=== PATIENT | female | born 2000 | race Caucasian/White ===

== ENCOUNTER 2019-10-03 17:10 | Inpatient (IN) ==
[2019-10-03] MEDS ORDERED: ACETAMINOPHEN 325 MG TAB PO STA (19:03)
[2019-10-03] MEDS ORDERED: SODIUM CHLORIDE 0.9% 1000ML 2,000 ML IV ONE (19:03)
[2019-10-03 19:45] LABS: Hematocrit (blood only) 36.3 % (37-47); Hemoglobin 12.5 g/dL (12.0-16.0); Mean Corpuscular Hemoglobin 29.8 pg (25-34); Mean Corpuscular Hgb Conc 34.4 g/dL (32-36); Mean Corpuscular Volume 86.4 fL (80-100); Mean Platelet Volume 10.1 fL (7.4-10.4); Platelet Count 141 K/uL (130-400); RDW Coefficient of Variation 13.5 % (11.5-14.5); RDW Standard Deviation 42.5 fL (36.4-46.3); White Blood Count 8.79 K/uL (4.8-10.8)
[2019-10-03 19:52] LABS: Appearance Urine Cloudy (Clear); Blood Urine Trace (Negative); Color Urine Dark Yellow; Epithelial Cell Urine Auto >30 /lpf (0-5); Glucose Urine UA Negative (Negative); Ketones Urine Negative (Negative); Leukocyte Esterase Urine 1+ (Negative); Nitrite Urine Positive (Negative); Protein Urine Trace (Negative); Specific Gravity Urine 1.017 (1.000-1.030); Urobilinogen Urine Negative (Negative)
[2019-10-03 19:57] LABS: Bilirubin Urine 3+ (Negative); Ictotest Urine Positive (Negative)
[2019-10-03 20:04] LABS: Albumin Globulin Ratio 0.6 (0.9-2); BUN Creatinine Ratio 8.5 (10-20); Bilirubin,Total 3.9 mg/dl (0.2-1); Calcium 8.4 mg/dl (8.5-10.1); Creatinine Clr Calc Pharmacy 93.4 ml/min; Est GFR (African American) 130.9; Est GFR (Non-African American) 112.9; Globulin 4.7 gm/dl (2.5-4.0); Potassium 3.6 mmol/L (3.5-5.1); Total Protein 7.7 gm/dl (6.4-8.2)
[2019-10-03 20:11] LABS: Calcium Oxalate Crystals Urine Present (None Prsent); Cast Urine Automated 0 /lpf (0-5); Mucus Urine Present (None Prsent); RBC Urine Automated 0-4 /hpf (0-4)
[2019-10-03 20:12] LABS: Bacteria Urine Automated 2+ (Negative)
[2019-10-03] MEDS ORDERED: IOVERSOL 100ml IV PRN (20:19)
[2019-10-03 20:33] LABS: ALC (manual) 5.78 K/uL (1.2-3.4); ANC (manual) 2.54 K/uL (1.4-6.5); Lymphocytes % (manual) 22.8 %; Monocytes # (manual) 0.47 K/uL (0.11-0.59); Monocytes % (manual) 5.3 %; Neutrophils # (manual) 2.54 K/uL (1.4-6.5); Neutrophils % (manual) 28.9 %; Reactive Lymphocytes # (manual) 3.78 K/uL
[2019-10-03] MEDS ORDERED: DiphenhydrAMINE HCL 50 MG/ML VIAL IV STA (21:20)
--- NOTE | 2019-10-03 21:34 | CT Scan Report ---
CT SCAN OF THE ABDOMEN AND PELVIS WITH IV CONTRAST CLINICAL HISTORY: Fever. Generalized abdominal pain. COMPARISON STUDY: No priors. TECHNIQUE: Following the IV administration of 93 cc of Optiray 320, CT scan of the abdomen and pelvi s is performed from the lung bases to the proximal femora. Images are reviewed in the axial, sagittal , and coronal planes. IV contrast was administered without complication. A dose lowering technique wa s utilized adhering to the principles of ALARA. CT DOSE: 287.35 mGy.cm FINDINGS: Lung bases: The heart is normal in size and without pericardial effusion. There are trace pleural eff usions and bibasilar atelectasis. Liver: The contrast-enhanced liver is enlarged, measuring 21 cm in length. The liver is normal in con tour and attenuation. There is no intrahepatic biliary ductal dilatation. The hepatic veins and nancy l veins are patent. Gallbladder: Contracted. Spleen: The spleen is enlarged measuring 16.8 cm in length. Pancreas: Unremarkable. Adrenal glands: Unremarkable. Kidneys: The contrast enhanced kidneys are normal in size and without hydronephrosis. The kidneys enh ance symmetrically. Abdominal vasculature: The abdominal aorta is normal in course and caliber. Bowel: The small bowel and colon are normal in course and caliber. The appendix is well-visualized a nd normal. Peritoneum: There is no intraperitoneal free air or abdominal ascites. There is a small fat-containin g umbilical hernia. Lymphadenopathy: None. Pelvic viscera: The bladder is decompressed and grossly unremarkable. Uterus and adnexa are normal as visualized noting bilateral ovarian follicles. There is a small volume of free fluid in the cul-de-s ac. Skeletal structures: No lytic or blastic lesions are seen. IMPRESSION: 1. There are no acute infectious or inflammatory findings in the abdomen or pelvis. 2. There is a small volume of nonspecific free fluid in cul-de-sac, likely within physiologic limits. 3. Trace pleural effusions. 4. Hepatosplenomegaly. ACT 112: Negative or not required by law. Electronically signed by: Jh Lloyd M.D. 10/03/2019 9:33 PM
[2019-10-03] MEDS: LACTATED RINGER'S 1,000 ML IV SCH (23:01)
--- NOTE | 2019-10-03 23:08 | Emergency Department Note ---
Entered by Arnel Piper acting as a scribe for Ronald Stewart DO History of Present Illness General Chief complaint: Abdominal Pain Stated complaint: HAS MONO, COLORED URINE AND ABD PAIN Source: patient History of Present Illness Provider complaint: Abdominal pain Onset (ago): day(s) 1 Location: abdomen Pain Consistency: + constant Relieved By: + none Associated symptoms: + fever/chills and + other (Fatigue, Muscle aches ) The patient is a 19 year old female w/ no PMHx who presents to the ED w/ CC of constant abdominal pain that started yesterday. The patient reports she was diagnosed with [place] last week. Her symptoms started with a fever and rhinorrhea as well as generalized fatigue and muscle aches. The patient states the abdominal pain is generalized and nothing seems to help relieve it. The patient adds that yesterday she noticed her urine was very dark, almost a red color. The patient states her last BM was today and it was normal. Her LNMP was last week and normal. She denies any previous abdominal surgeries. She admits to nausea but no vomiting. Home Medications Home Medications Medication Instructions Recorded Confirmed Type L norgest/e.estradiol-e.estrad 1 tab PO DAILY 10/03/19 10/03/19 History Allergies Allergy/AdvReac Type Severity Reaction Status Date / Time No Known Allergies Allergy Verified 10/03/19 22:08 Past Med/Surg History Medical History Mononucleosis Family History Other No pertinent family history in first degree relatives Social History Feels Safe at Home: Yes Smoking Status: Never smoker Review of Systems See HPI for pertinent positives & negatives. and A total of 10 systems reviewed and were otherwise negative Physical Exam Vital Signs Vital Signs - 24 hr 10/03/19 17:41 10/03/19 18:56 10/03/19 19:40 Temperature 38 C H Temperature Source Oral Pulse Rate 118 H Pulse Rate [Finger] 111 H 99 H Respiratory Rate 18 18 18 Respiratory Effort / Characteristics Non-Labored Non-Labored Non-Labored Respiratory Depth Normal Normal Normal Blood Pressure 114/74 Blood Pressure [Right Arm] 117/65 106/70 Blood Pressure Mean 87 Blood Pressure Mean [Right Arm] 82 82 Pulse Oximetry 98 99 100 Oxygen Delivery Method Room Air Room Air Sepsis Recent Fever Within 48 Hours No Sepsis New/Unexplained Change in Mental Status No Sepsis Action Taken by Nursing No Action Required 10/03/19 20:26 10/03/19 22:43 Temperature 37.4 C Temperature Source Oral Pulse Rate Pulse Rate [Finger] 103 H 98 H Respiratory Rate 18 18 Respiratory Effort / Characteristics Respiratory Depth Normal Blood Pressure Blood Pressure [Right Arm] 114/71 Blood Pressure Mean Blood Pressure Mean [Right Arm] 85 Pulse Oximetry 100 Oxygen Delivery Method Room Air Sepsis Recent Fever Within 48 Hours Sepsis New/Unexplained Change in Mental Status Sepsis Action Taken by Nursing GENERAL: Sitting up in bed, alert, disheveled appearing, well nourished, no dis tress, non-toxic EYE EXAM: normal conjunctiva. OROPHARYNX: no exudate, no erythema, lips, buccal mucosa, and tongue normal and mucous membranes are moist NECK: supple, no nuchal rigidity, no adenopathy, non-tender LUNGS: Clear to auscultation. Normal chest wall mechanics HEART: no murmurs, S1 normal and S2 normal ABDOMEN: abdomen soft, mild diffuse tenderness, normo-active bowel, sounds, no masses, no rebound or guarding. BACK: Back is symmetrical on inspection and there is no deformity, no midline tenderness, no CVA tenderness. SKIN: no rashes and no bruising UPPER EXTREMITIES: upper extremities are grossly normal. LOWER EXTREMITIES: No pitting edema. NEURO EXAM: Normal sensorium, cranial nerves II-XII grossly intact, normal speech, no gross weakness of arms, no gross weakness of legs. Course Course ED COURSE: Vital signs were reviewed and showed borderline tachycardia. The patients medical record was reviewed The above diagnostic studies were performed and reviewed. ED treatments and interventions as stated above. 1858: The patient was evaluated in room C10. A complete history and physical examination was performed. 2051: I reevaluated the patient and updated her with test results. 2143: I spoke to Dr. Kiel ROCA about the patient's case. He recommended keeping the patient for observation. 2204: Upon reevaluation, the patient is resting in bed. I discussed my findings with the patient and she understands and agrees with the treatment plan. 2214: I spoke to Dr. Carpenter - [facility] Hospitalist about the patient's case and he agreed to accept the patient for further evaluation. Based on the patients age, coexisting illnesses, exam and lab findings the decision to treat as an inpatient was made. The patient remained stable while under my care. The patient will be evaluated for further management. Consultations Consultation #1: I spoke to Dr. Kiel ROCA about the patient's case. He recommended keeping the patient for observation. Time: 21:44 Consultation #2: I spoke to Dr. Carpenter - [facility] Hospitalist about the patient's case and he agreed to accept the patient for further evaluation. Time: 22:15 Administered Medications Lactated Ringer's (Lr) 1,000 mls @ 150 mls/hr IV .Q6H40M LILIYA Stop: 11/02/19 22:48 Last Admin: 10/03/19 23:01 Dose: 150 mls/hr Documented by: [id number] Ioversol (Optiray 320 100ml) 93 ml IV ONCE PRN PRN Reason: Interaction Checking Stop: 10/07/19 20:18 Last Admin: 10/03/19 20:19 Dose: 93 ml Documented by: [id number] Discontinued Medications Acetaminophen (Tylenol) 650 mg PO NOW STA Stop: 10/03/19 19:04 Last Admin: 10/03/19 19:34 Dose: 650 mg Documented by: [id number] Diphenhydramine HCl (Benadryl) 50 mg IV NOW STA Stop: 10/03/19 21:21 Last Admin: 10/03/19 21:22 Dose: 50 mg Documented by: [id number] Sodium Chloride (Nss 1000ml) 2,000 mls @ 999 mls/hr IV .Q2H1M ONE Stop: 10/03/19 21:03 Last Infusion: 10/03/19 21:42 Dose: 0 mls/hr Documented by: [id number] Admin: 10/03/19 19:34 Dose: 999 mls/hr Documented by: [id number] Medical Decision Making Differential Diagnosis Differential diagnoses includes but is not limited to gastritis, peptic ulcer disease, GERD, gallbladder disease, pancreatitis, small bowel obstruction, acute coronary syndrome, pericarditis, ischemic bowel, irritable bowel disease, irritable bowel syndrome, appendicitis, diverticulitis, malignancy, hernia, urinary tract infection, torsion, /ectopic , perforation, tr auma, infectious. Medical Records Attestation: I reviewed the patient's medical records. Home Medications Current Medication List: was personally reviewed by me Laboratory Data Attestation: I reviewed the patient's lab results. Result diagrams: 10/03/19 19:22 10/03/19 19:22 Lab Results 10/03/19 10/03/19 10/03/19 Range/Units 19:22 19:22 19:31 WBC 8.79 (4.8-10.8) K/uL RBC 4.20 (4.2-5.4) M/uL Hgb 12.5 (12.0-16.0) g/dL Hct 36.3 L (37-47) % MCV 86.4 (80-100) fL MCH 29.8 (25-34) pg MCHC 34.4 (32-36) g/dL RDW Std Deviation 42.5 (36.4-46.3) fL RDW Coeff of Monica 13.5 (11.5-14.5) % Plt Count 141 (130-400) K/uL MPV 10.1 (7.4-10.4) fL Neutrophils % (Manual) 28.9 % Lymphocytes % (Manual) 22.8 % Reactive Lymphs % (Man) 43.0 % Monocytes % (Manual) 5.3 % Neutrophils # (Manual) 2.54 (1.4-6.5) K/uL Total Absolute Neuts 2.54 (1.4-6.5) K/uL Lymphocytes # (Manual) 2.00 (1.2-3.4) K/uL Reactive Lymphs # 3.78 K/uL Total Abs Lymphocytes 5.78 H (1.2-3.4) K/uL Monocytes # (Manual) 0.47 (0.11-0.59) K/uL Sodium 136 (136-145) mmol/L Potassium 3.6 (3.5-5.1) mmol/L Chloride 106 (98-107) mmol/L Carbon Dioxide 24 (21-32) mmol/L Anion Gap 6.0 (3-11) BUN 6 L (7-18) mg/dl Creatinine 0.76 (0.6-1.2) mg/dl Est Cr Clr Drug Dosing 93.4 ml/min Est GFR ( Amer) 130.9 Est GFR (Non-Af Amer) 112.9 BUN/Creatinine Ratio 8.5 L (10-20) Glucose 84 (70-99) mg/dl Calcium 8.4 L (8.5-10.1) mg/dl Total Bilirubin 3.9 H (0.2-1) mg/dl AST 184 H (15-37) U/L ALT 224 H (12-78) U/L Alkaline Phosphatase 248 H (45-117) U/L Total Creatine Kinase 28 (26-192) U/L Total Protein 7.7 (6.4-8.2) gm/dl Albumin 3.0 L (3.4-5.0) gm/dl Globulin 4.7 H (2.5-4.0) gm/dl Albumin/Globulin Ratio 0.6 L (0.9-2) Lipase 133 (73-393) U/L Urine Color Dark Yellow Urine Appearance Cloudy A (Clear) Urine pH 6.0 (4.5-7.5) Ur Specific [place] 1.017 (1.000-1.030) Urine Protein Trace H (Negative) Urine Glucose (UA) Negative (Negative) Urine Ketones Negative (Negative) Urine Blood Trace H (Negative) Urine Nitrite Positive A (Negative) Urine Bilirubin 3+ H (Negative) Urine Urobilinogen Negative (Negative) Ur Leukocyte Esterase 1+ H (Negative) Urine WBC (Auto) 1-5 (0-5) /hpf Urine RBC (Auto) 0-4 (0-4) /hpf U Hyaline Cast (Auto) 0 (0-5) /lpf U Epithel Cells (Auto) >30 H (0-5) /lpf Urine Bacteria (Auto) 2+ H (Negative) Calcium Oxalate Crystal Present A (None Prsent) Urine Mucus Present A (None Prsent) Urine Yeast Not Reportable POC Ur Test (NEG) 10/03/19 Range/Units 19:31 WBC (4.8-10.8) K/uL RBC (4.2-5.4) M/uL Hgb (12.0-16.0) g/dL Hct (37-47) % MCV (80-100) fL MCH (25-34) pg MCHC (32-36) g/dL RDW Std Deviation (36.4-46.3) fL RDW Coeff of Monica (11.5-14.5) % Plt Count (130-400) K/uL MPV (7.4-10.4) fL Neutrophils % (Manual) % Lymphocytes % (Manual) % Reactive Lymphs % (Man) % Monocytes % (Manual) % Neutrophils # (Manual) (1.4-6.5) K/uL Total Absolute Neuts (1.4-6.5) K/uL Lymphocytes # (Manual) (1.2-3.4) K/uL Reactive Lymphs # K/uL Total Abs Lymphocytes (1.2-3.4) K/uL Monocytes # (Manual) (0.11-0.59) K/uL Sodium (136-145) mmol/L Potassium (3.5-5.1) mmol/L Chloride (98-107) mmol/L Carbon Dioxide (21-32) mmol/L Anion Gap (3-11) BUN (7-18) mg/dl Creatinine (0.6-1.2) mg/dl Est Cr Clr Drug Dosing ml/min Est GFR ( Amer) Est GFR (Non-Af Amer) BUN/Creatinine Ratio (10-20) Glucose (70-99) mg/dl Calcium (8.5-10.1) mg/dl Total Bilirubin (0.2-1) mg/dl AST (15-37) U/L ALT (12-78) U/L Alkaline Phosphatase (45-117) U/L Total Creatine Kinase (26-192) U/L Total Protein (6.4-8.2) gm/dl Albumin (3.4-5.0) gm/dl Globulin (2.5-4.0) gm/dl Albumin/Globulin Ratio (0.9-2) Lipase (73-393) U/L Urine Color Urine Appearance (Clear) Urine pH (4.5-7.5) Ur Specific [place] (1.000-1.030) Urine Protein (Negative) Urine Glucose (UA) (Negative) Urine Ketones (Negative) Urine Blood (Negative) Urine Nitrite (Negative) Urine Bilirubin (Negative) Urine Urobilinogen (Negative) Ur Leukocyte Esterase (Negative) Urine WBC (Auto) (0-5) /hpf Urine RBC (Auto) (0-4) /hpf U Hyaline Cast (Auto) (0-5) /lpf U Epithel Cells (Auto) (0-5) /lpf Urine Bacteria (Auto) (Negative) Calcium Oxalate Crystal (None Prsent) Urine Mucus (None Prsent) Urine Yeast POC Ur Test NEG (NEG) Imaging Data Radiologist's Impression: Radiology results as stated below per my review and the radiologist's interpretation: CT SCAN OF THE ABDOMEN AND PELVIS WITH IV CONTRAST CLINICAL HISTORY: Fever. Generalized abdominal pain. COMPARISON STUDY: No priors. TECHNIQUE: Following the IV administration of 93 cc of Optiray 320, CT scan of the abdomen and pelvis is performed from the lung bases to the proximal femora. Images are reviewed in the axial, sagittal, and coronal planes. IV contrast was administered without complication. A dose lowering technique was utilized adhering to the principles of ALARA. CT DOSE: 287.35 mGy.cm FINDINGS: Lung bases: The heart is normal in size and without pericardial effusion. There are trace pleural effusions and bibasilar atelectasis. Liver: The contrast-enhanced liver is enlarged, measuring 21 cm in length. The liver is normal in contour and attenuation. There is no intrahepatic biliary ductal dilatation. The hepatic veins and portal veins are patent. Gallbladder: Contracted. Spleen: The spleen is enlarged measuring 16.8 cm in length. Pancreas: Unremarkable. Adrenal glands: Unremarkable. Kidneys: The contrast enhanced kidneys are normal in size and without hydronephrosis. The kidneys enhance symmetrically. Abdominal vasculature: The abdominal aorta is normal in course and caliber. Bowel: The small bowel and colon are normal in course and caliber. The appendix is well-visualized and normal. Peritoneum: There is no intraperitoneal free air or abdominal ascites. There is a small fat-containing umbilical hernia. Lymphadenopathy: None. Pelvic viscera: The bladder is decompressed and grossly unremarkable. Uterus and adnexa are normal as visualized noting bilateral ovarian follicles. There is a small volume of free fluid in the cul-de-sac. Skeletal structures: No lytic or blastic lesions are seen. IMPRESSION: 1. There are no acute infectious or inflammatory findings in the abdomen or pelvis. 2. There is a small volume of nonspecific free fluid in cul-de-sac, likely within physiologic limits. 3. Trace pleural effusions. 4. Hepatosplenomegaly. ACT 112: Negative or not required by law. Electronically signed by: Jh Lloyd M.D. 10/03/2019 9:33 PM Blood Pressure Blood Pressure Findings: Normal blood pressure MDM Narrative Patient is a 19-year-old female who presents the ER for abdominal pain which is been present for the past 24 hours. She notes that she was diagnosed with mono over a week ago. Belly pain is new. She had upper respiratory symptoms associated with lymphadenopathy and a fever previously. Labs show no significant leukocytosis or anemia. BMP was unremarkable. LFTs were elevated in the 200s. Alk phos was elevated. Total bilirubin was elevated at 4. Lipase was unremarkable. UA had nitrates which I do believe secondary to the elevated bilirubin. She has no urinary symptoms. Would not treat. CT abdomen pelvis was negative. Patient was given IV fluids and Zofran. She did feel significantly better. Did not check her mono here as she was previously positi ve. With his transaminitis and elevated bilirubin did discuss with GI who recommended observation which I felt was reasonable. Updated the patient and family at bedside. Discussed with the hospitalist and patient will be observed overnight. Impression & Plan Abdominal pain, Transaminitis, Elevated bilirubin, Mononucleosis Discharge Plan Visit Data Chief Complaint: Abdominal Pain Stated Complaint: HAS MONO, COLORED URINE AND ABD PAIN ED Provider: Ronald Stewart Discharge Problem: Abdominal pain, Transaminitis, Elevated bilirubin, Mononucleosis Patient Disposition: Being Evaluated by Hospitalist Forms Stand Alone Forms: My [facility] Prescriptions Prescriptions: No Action L norgest/e.estradiol-e.estrad 0.15 mg-30 mcg (84)/10 mcg (7) tablets,dose pack,3 month 1 tab PO DAILY RF: 0 Referrals Referrals: SERVANDO REID [Other] Discharge Problem: Abdominal pain Qualifiers: Abdominal location: unspecified location Qualified Code(s): R10.9 - Unspecified abdominal pain Mononucleosis Qualifiers: Infectious mononucleosis etiology: unspecified organism Infectious mononucleosis complication: without complication Qualified Code(s): B27.90 - Infectious mononucleosis, unspecified without complication The scribe's documentation has been prepared under my direction and personally reviewed by me in its entirety. I confirm that the note above accurately reflects all work, treatment, procedures, and medical decision making performed by me.
--- NOTE | 2019-10-03 23:15 | History & Physical Report ---
Date of Service October 03, 2019 Assessment & Plan (1) Acute hepatitis: With cholestasis and elevated total bili to 3.9. Secondary to EBV She did have Hep B vaccine series Acute hepatitis panel sent. IVF Monitor LFTs and Bili Bili peaks 5-14 days after onset of mono GI consult (2) Mononucleosis: Diagnosed by monospot (not on record here) I sent for EBV and CMV studies. No contact sports for total 6 weeks -> mother and patient aware. (3) Menorrhagia: Continue oral contraception (4) Hives: I feel this is secondary to mono ( I have seen before) She is controlling with prn Benadryl I advised taking daily non-sedating antihistamine (Zyrtec ordered) daily and using Benadryl prn for outbreaks of hives. I advised that hives can persist for weeks to even months. History of Present Illness 19 y/o female presents to the ED with diffuse abdominal pain, fatigue, muscle aches, nausea and intermittent hives. 3 days prior she was seen in an urgent care due to sore throat, submandibular lymphadenopathy with fever. She was diagnosed with mono from [employer]. Her sore throat and lymphadenopathy improved, but she began having abdominal pain and dark colored urine. No Vomiting. Normal BMs. Throughout this illness, she has been having intermittent hive outbreaks that has been controlled with Benadryl. She is a student at [employer] and her home is in [place], [place]. Her mother is at bedside. The patient has not traveled out of this area in past 3 months. She does not use IV drugs. Her only medication is oral contraception which she is prescribed due to dysmenorrhea and menorrhagia. Her LNMP was last week and normal. She denies any previous abdominal surgeries. Primary Care Provider: SERVANDO REID Allergies Allergy/AdvReac Type Severity Reaction Status Date / Time No Known Allergies Allergy Verified 10/03/19 22:08 Home Medications Home Medications Medication Instructions Recorded Confirmed Type L norgest/e.estradiol-e.estrad 1 tab PO DAILY 10/03/19 10/03/19 History Past Med/Surg History Medical History (Updated 10/04/19 @ 00:02 by Cain Carpenter DO) Dysmenorrhea Menorrhagia Mononucleosis Family History Other No pertinent family history in first degree relatives Social History Feels Safe at Home: Yes Smoking Status: Never smoker Review of Systems Review of Systems: All systems reviewed & are unremarkable except as noted in HPI & below Physical Exam Physical Exam: General- adult female, NAD Head- atraumatic Eyes- PERRL, EOMI, anicteric ENT- oropharynx mildly erythematous, no exudate. Neck- supple, no JVD, Minimal submandibular lymphadenopathy. Lungs- CTA b/l no R/R/W Heart- regular rhythm; no murmur, no gallop, no rub appreciated Abdomen- normal bowel sounds, soft, nontender, + hepatosplenomegaly Extremities- no pretibial edema, no calf tenderness; peripheral pulses intact Neuro- alert, oriented x 3; PERRL, EOMI; hand weaver II-XII grossly intact, non-focal. Skin- warm & dry. A Few flat circular red areas noted on b/l hands and wrists, from recent hive outbreak. Results & Data Vital Signs (Past 12 Hours) Vital Signs Temp Pulse Pulse Resp BP BP Pulse Ox 10/03/19 22:43 98 H 18 114/71 10/03/19 20:26 37.4 C 103 H 18 100 10/03/19 19:40 99 H 18 106/70 100 10/03/19 18:56 111 H 18 117/65 99 10/03/19 17:41 38 C H 118 H 18 114/74 98 Laboratory Results Laboratory Results WBC 8.79 K/uL (4.8-10.8) 10/03/19 19:22 RBC 4.20 M/uL (4.2-5.4) 10/03/19 19:22 Hgb 12.5 g/dL (12.0-16.0) 10/03/19 19:22 Hct 36.3 % (37-47) L 10/03/19 19:22 MCV 86.4 fL (80-100) 10/03/19 19:22 MCH 29.8 pg (25-34) 10/03/19 19:22 MCHC 34.4 g/dL (32-36) 10/03/19 19:22 RDW Std Deviation 42.5 fL (36.4-46.3) 10/03/19 19:22 RDW Coeff of Monica 13.5 % (11.5-14.5) 10/03/19 19: Plt Count 141 K/uL (130-400) 10/03/19 19: MPV 10.1 fL (7.4-10.4) 10/03/19 19:22 Neutrophils % (Manual) 28.9 % 10/03/19 19:22 Lymphocytes % (Manual) 22.8 % 10/03/19 19:22 Reactive Lymphs % (Man) 43.0 % 10/03/19 19: Monocytes % (Manual) 5.3 % 10/03/19 19: Neutrophils # (Manual) 2.54 K/uL (1.4-6.5) 10/03/19 19: Total Absolute Neuts 2.54 K/uL (1.4-6.5) 10/03/19 19:22 Lymphocytes # (Manual) 2.00 K/uL (1.2-3.4) 10/03/19 19: Reactive Lymphs # 3.78 K/uL 10/03/19 19:22 Total Abs Lymphocytes 5.78 K/uL (1.2-3.4) H 10/03/19 19:22 Monocytes # (Manual) 0.47 K/uL (0.11-0.59) 10/03/19 19:22 Sodium 136 mmol/L (136-145) 10/03/19 19:22 Potassium 3.6 mmol/L (3.5-5.1) 10/03/19 19: Chloride 106 mmol/L (98-107) 10/03/19 19: Carbon Dioxide 24 mmol/L (21-32) 10/03/19 19:22 Anion Gap 6.0 (3-11) 10/03/19 19:22 BUN 6 mg/dl (7-18) L 10/03/19 19: Creatinine 0.76 mg/dl (0.6-1.2) 10/03/19 19:22 Est Cr Clr Drug Dosing 93.4 ml/min 10/03/19 19:22 Est GFR ( Amer) 130.9 10/03/19 19:22 Est GFR (Non-Af Amer) 112.9 10/03/19 19:22 BUN/Creatinine Ratio 8.5 (10-20) L 10/03/19 19: Glucose 84 mg/dl (70-99) 10/03/19 19: Calcium 8.4 mg/dl (8.5-10.1) L 10/03/19 19: Total Bilirubin 3.9 mg/dl (0.2-1) H 10/03/19 19: AST 184 U/L (15-37) H 10/03/19 19: ALT 224 U/L (12-78) H 10/03/19 19: Alkaline Phosphatase 248 U/L (45-117) H 10/03/19 19: Total Creatine Kinase 28 U/L (26-192) 10/03/19: Total Protein 7.7 gm/dl (6.4-8.2) 10/03/19: Albumin 3.0 gm/dl (3.4-5.0) L 10/03/19: Globulin 4.7 gm/dl (2.5-4.0) H 10/03/19: Albumin/Globulin Ratio 0.6 (0.9-2) L 10/03/19: Lipase 133 U/L (73-393) 10/03/19 19: Urine Color Dark Yellow 10/03/19: Urine Appearance Cloudy (Clear) A 10/03/19 Urine pH 6.0 (4.5-7.5) 10/03/19: Ur Specific [place] 1.017 (1.000-1.030) 10/03/19: Urine Protein Trace (Negative) H 10/03/19: Urine Glucose (UA) Negative (Negative) 10/03/19: Urine Ketones Negative (Negative) 10/03/19 Urine Blood Trace (Negative) H 10/03/19: Urine Nitrite Positive (Negative) A 10/03/19: Urine Bilirubin 3+ (Negative) H 10/03/19: Urine Urobilinogen Negative (Negative) 10/03/19: Ur Leukocyte Esterase 1+ (Negative) H 10/03/19: Urine WBC (Auto) 1-5 /hpf (0-5) 01/14/20 19:31 Urine RBC (Auto) 0-4 /hpf (0-4) 10/03/19 19:31 U Hyaline Cast (Auto) 0 /lpf (0-5) 10/03/19 19:31 U Epithel Cells (Auto) >30 /lpf (0-5) H 10/03/19 19:31 Urine Bacteria (Auto) 2+ (Negative) H 10/03/19 19:31 Calcium Oxalate Crystal Present (None Prsent) A 10/03/19 19:31 Urine Mucus Present (None Prsent) A 10/03/19 19:31 Urine Yeast Not Reportable 10/03/19 19:31 POC Ur Test NEG (NEG) 10/03/19 19:31 Diagnostic Findings [place], [place] [phone] CT Scan Report Patient: KIM EDMONDSAdmit Date: 10/03/19 MR#: [id number]: 7[address] Acct ID:[id number]: Date: 2000ty Zip: [place] [address] Age: 19Location: ED Sex: F Room/Bed: Att Phy:Diagnosis: HAS MONO, COLORED URINE AND ABD PAIN Viridiana Phy: Yusra REID Date: 10/03/19 Fam Phy: TEMP,OPInterpreting Phy: Jh Lloyd MD Admit Phy: Ordering Phy: Ronald Stewart, cc: ~ CT SCAN OF THE ABDOMEN AND PELVIS WITH IV CONTRAST CLINICAL HISTORY: Fever. Generalized abdominal pain. COMPARISON STUDY: No priors. TECHNIQUE: Following the IV administration of 93 cc of Optiray 320, CT scan of the abdomen and pelvis is performed from the lung bases to the proximal femora. Images are reviewed in the axial, sagittal, and coronal planes. IV contrast was administered without complication. A dose lowering technique was utilized adhering to the principles of ALARA. CT DOSE: 287.35 mGy.cm FINDINGS: Lung bases: The heart is normal in size and without pericardial effusion. There are trace pleural effusions and bibasilar atelectasis. Liver: The contrast-enhanced liver is enlarged, measuring 21 cm in length. The liver is normal in contour and attenuation. There is no intrahepatic biliary ductal dilatation. The hepatic veins and portal veins are patent. Gallbladder: Contracted. Spleen: The spleen is enlarged measuring 16.8 cm in length. Pancreas: Unremarkable. Adrenal glands: Unremarkable. Kidneys: The contrast enhanced kidneys are normal in size and without hydronephrosis. The kidneys enhance symmetrically. Abdominal vasculature: The abdominal aorta is normal in course and caliber. Bowel: The small bowel and colon are normal in course and caliber. The appendix is well-visualized and normal. Peritoneum: There is no intraperitoneal free air or abdominal ascites. There is a small fat-containing umbilical hernia. Lymphadenopathy: None. Pelvic viscera: The bladder is decompressed and grossly unremarkable. Uterus and adnexa are normal as visualized noting bilateral ovarian follicles. There is a small volume of free fluid in the cul-de-sac. Skeletal structures: No lytic or blastic lesions are seen. IMPRESSION: 1. There are no acute infectious or inflammatory findings in the abdomen or pelvis. 2. There is a small volume of nonspecific free fluid in cul-de-sac, likely within physiologic limits. 3. Trace pleural effusions. 4. Hepatosplenomegaly. ACT 112: Negative or not required by law. Electronically signed by: Jh Lloyd M.D. 10/03/2019 9:33 PM Dictated: 10/03/192127 Transcribed: 10/03/192127 Code Status & VTE Plan VTE Prophylaxis Plan VTE Prophylaxis will be ordered: Yes PG Care Time/CCT Total # of Minutes Spent Total Time Spent: 60 Total Time Spent with Patient: Total time spent is greater than 50% in coordination of care (as documented) at patient's floor/unit and/or counseling patient: (1) Mononucleosis Infectious mononucleosis complication: without complication Infectious mononucleosis etiology: unspecified organism Qualified Code(s): B27.90 - Infectious mononucleosis, unspecified without complication
[2019-10-03] MEDS ORDERED: MoRPHine SULFATE 2 MG/ML CARP IV PRN (23:50)
[2019-10-03] MEDS ORDERED: KETOROLAC TROMETHAMINE 15 MG/ML VIAL IV PRN (23:50)
[2019-10-03] MEDS ORDERED: MoRPHine SULFATE 4 MG/ML 1 ML CARP\\VIAL IV PRN (23:50)
[2019-10-03] MEDS ORDERED: ONDANSETRON INJ 2 MG/ML 2 ML VIAL IV PRN (23:50)
[2019-10-04 00:06] LABS: Albumin Level 2.5 gm/dl (3.4-5.0); Bilirubin Direct 2.7 mg/dl (0-0.2); Bilirubin,Total 3.3 mg/dl (0.2-1); Total Protein 6.4 gm/dl (6.4-8.2)
[2019-10-04] MEDS: FAMOTIDINE 20 MG TAB PO SCH ×2 (00:53→09:02)
[2019-10-04] MEDS: ORAL CONTRACEPTIVE~ORDER AWAITING ACTION SCH ×2 (00:54→09:02)
[2019-10-04 06:11] LABS: Hematocrit (blood only) 32.1 % (37-47); Mean Corpuscular Hemoglobin 29.9 pg (25-34); Mean Corpuscular Hgb Conc 34.3 g/dL (32-36); Mean Corpuscular Volume 87.2 fL (80-100); Mean Platelet Volume 10.4 fL (7.4-10.4); Platelet Count 133 K/uL (130-400); RDW Coefficient of Variation 13.7 % (11.5-14.5); RDW Standard Deviation 43.7 fL (36.4-46.3); Red Blood Count 3.68 M/uL (4.2-5.4); White Blood Count 8.59 K/uL (4.8-10.8)
[2019-10-04 06:37] LABS: Albumin Level 2.5 gm/dl (3.4-5.0); BUN Creatinine Ratio 5.2 (10-20); Bilirubin Direct 2.9 mg/dl (0-0.2); Calcium 7.5 mg/dl (8.5-10.1); Creatinine Clr Calc Pharmacy 109.2 ml/min; Est GFR (African American) 148.1; Est GFR (Non-African American) 127.8; Potassium 3.6 mmol/L (3.5-5.1)
[2019-10-04 06:39] LABS: Albumin Globulin Ratio 0.6 (0.9-2); Bilirubin,Total 3.5 mg/dl (0.2-1); Globulin 3.9 gm/dl (2.5-4.0); Total Protein 6.4 gm/dl (6.4-8.2)
[2019-10-04] MEDS: LACTATED RINGER'S 1,000 ML IV SCH ×2 (06:55→12:44)
[2019-10-04 08:41] LABS: Hepatitis B Surface Antigen Neg (Neg)
[2019-10-04] MEDS ORDERED: CETIRIZINE HCL 10 MG TABLET PO SCH (09:00)
[2019-10-04 09:09] LABS: Hepatitis C IgG 13Yrs+Old_Rflx Neg (Neg)
--- NOTE | 2019-10-04 13:49 | Gastrointestinal Consultation ---
Date of Consultation October 04, 2019 Assessment & Plan (1) Acute hepatitis: 19 y/o female with outside labs + for EBV, now presenting with abd discomfort, dark urine, elevated bilirubin and LFTs and CT with hepatosplenomegaly, c/w mono hepatitis. Today feeling about the same; tolerating regular diet, afebrile, VSS - Discussed natural course, progression, pathophysiology, self-limiting nature of mono; reinforced importance of rest - Discussed transmission and reinforced hygiene; avoid sharing utensils, straws, etc - Acute hep panel pending - Continue diet as tolerated, fluids as able - Analgesia PRN; avoid Tylenol < 2 gm daily - Can f/u as an outpt with PCP to ensure labs return to normal - Continue ETOH avoidance - Avoid contact sports x at least 6 weeks (2) Mononucleosis: History of Present Illness Reason for Consultation: acute hepatitis with mono Attending Physician: Avelino Caldwell History of Present Illness Pt is a 19 y/o female with no significant PMHx who developed submandibular lymphadenopathy and fever along with intermittent skin rash around 09/30/19; she was seen as an outpt and Monospot was +; she developed abd discomfort and dark urine and presented yesterday to the ER. On arrival total bili elevated at 3.9. CTAP with IV contrast with hepatosplenomegaly. Acute hep panel and CMV/EBV panel was sent. She was started on IVF. Overnight bilirubin improved to 3.5. AST 152-->145, ALT--> 187-->192, ALP 211-->180. Stable renal fxn, HGB. She feels about the same today; has some intermittent upper abd discomfort; feels "full" in her abd; feels fatigue, + lymphadenopathy in the neck. No n/v/d, no stephens stools. Bowels move once or twice daily, brown. Tolerating regular diet. Denies Tylenol, ETOH, NSAID use. She's a sophomore at [employer]; from [place]. 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 No known sick contacts Allergies Allergy/AdvReac Type Severity Reaction Status Date / Time No Known Allergies Allergy Verified 10/03/19 22:08 Home Medications Home Medications Medication Instructions Recorded Confirmed Type L norgest/e.estradiol-e.estrad 1 tab PO DAILY 01/14/20 01/14/20 History Patient History Medical History (Updated 10/04/19 @ 00:02 by Cain Carpenter DO) Dysmenorrhea Menorrhagia Mononucleosis Family History Other No pertinent family history in first degree relatives Social History Preferred Language: Malay Communication Ability: Effective Duck Operator Required: No Beliefs That Will Affect Care: None Current Living Situation Comment: off campus & with parents Feels Safe at Home: Yes Safety Concerns: Feels Safe At This Time Smoking Status: Never smoker Hx Alcohol Use: Yes Alcohol type: beer, wine and hard liquor Hx Substance Use: No Review of Systems Constitutional: as per Subjective / HPI Eyes: no jaundice Respiratory: no cough, no chest congestion and no wheezing Cardiovascular: no chest pain, no dyspnea and no edema Gastrointestinal: as per Subjective / HPI Genitourinary: no dysuria and no urinary frequency Musculoskeletal: + body aches Integumentary: as per Subjective / HPI Endocrine: No DM Physical Exam Constitutional: WD/WN, vitals as above no acute distress Eyes: sclerae not anicteric Respiratory: normal respiratory effort, lungs clear to auscultation Cardiovascular: RRR, no murmur, no edema Gastrointestinal (Abdomen): Inspection/Auscultation: abdomen normal to inspection and normal bowel sounds; abdomen not distended and no abdominal wall ecchymosis Percussion/Palpation: + abdomen tender (mild upper abd tenderness; no distention), abdomen soft and + hepatosplenomegaly; no guarding Skin: no rashes, warm and dry Psychiatric: A+Ox3, euthymic affect Results & Data Vital Signs (Past 12 Hours) Vital Signs Temp Pulse Resp BP Pulse Ox 10/04/19 07:25 37.2 C 92 H 16 117/71 96 Laboratory Results 10/04/19 10/04/19 10/04/19 Range/Units 05:45 05:45 05:37 WBC 8.59 (4.8-10.8) K/uL RBC 3.68 L (4.2-5.4) M/uL Hgb 11.0 L (12.0-16.0) g/dL Hct 32.1 L (37-47) % MCV 87.2 (80-100) fL MCH 29.9 (25-34) pg MCHC 34.3 (32-36) g/dL RDW Std Deviation 43.7 (36.4-46.3) fL RDW Coeff of Monica 13.7 (11.5-14.5) % Plt Count 133 (130-400) K/uL MPV 10.4 (7.4-10.4) fL Neutrophils % (Manual) % Lymphocytes % (Manual) % Reactive Lymphs % (Man) % Monocytes % (Manual) % Neutrophils # (Manual) (1.4-6.5) K/uL Total Absolute Neuts (1.4-6.5) K/uL Lymphocytes # (Manual) (1.2-3.4) K/uL Reactive Lymphs # K/uL Total Abs Lymphocytes (1.2-3.4) K/uL Monocytes # (Manual) (0.11-0.59) K/uL Sodium 139 (136-145) mmol/L Potassium 3.6 (3.5-5.1) mmol/L Chloride 112 H (98-107) mmol/L Carbon Dioxide 24 (21-32) mmol/L Anion Gap 3.0 (3-11) BUN 3 L (7-18) mg/dl Creatinine 0.65 (0.6-1.2) mg/dl Est Cr Clr Drug Dosing 109.2 ml/min Est GFR ( Amer) 148.1 Est GFR (Non-Af Amer) 127.8 BUN/Creatinine Ratio 5.2 L (10-20) Glucose 88 (70-99) mg/dl Calcium 7.5 L (8.5-10.1) mg/dl Total Bilirubin 3.5 H (0.2-1) mg/dl Direct Bilirubin 2.9 H (0-0.2) mg/dl AST 145 H (15-37) U/L ALT 192 H (12-78) U/L Alkaline Phosphatase 211 H (45-117) U/L Total Creatine Kinase (26-192) U/L Total Protein 6.4 (6.4-8.2) gm/dl Albumin 2.5 L (3.4-5.0) gm/dl Globulin 3.9 (2.5-4.0) gm/dl Albumin/Globulin Ratio 0.6 L (0.9-2) Lipase (73-393) U/L Urine Color Urine Appearance (Clear) Urine pH (4.5-7.5) Ur Specific [place] (1.000-1.030) Urine Protein (Negative) Urine Glucose (UA) (Negative) Urine Ketones (Negative) Urine Blood (Negative) Urine Nitrite (Negative) Urine Bilirubin (Negative) Urine Urobilinogen (Negative) Ur Leukocyte Esterase (Negative) Urine WBC (Auto) (0-5) /hpf Urine RBC (Auto) (0-4) /hpf U Hyaline Cast (Auto) (0-5) /lpf U Epithel Cells (Auto) (0-5) /lpf Urine Bacteria (Auto) (Negative) Calcium Oxalate Crystal (None Prsent) Urine Mucus (None Prsent) Urine Yeast POC Ur Test (NEG) CMV IgM Ab Pending CMV IgG Ab/TORCH Pending EBV Capsid Ag IgG Ab Pending EBV Capsid Ag IgM Ab Pending EBV EA Restrict+Diffuse Pending EBV Nuclear Antigen Ab Pending EBV Antibody Interp Pending Hepatitis A IgM Ab Pending Hep Bs Antigen (Neg) Hep B Core IgM Ab Pending Hepatitis C Antibody (Neg) 10/04/19 10/03/19 10/03/19 Range/Units 05:37 23:06 19:31 WBC (4.8-10.8) K/uL RBC (4.2-5.4) M/uL Hgb (12.0-16.0) g/dL Hct (37-47) % MCV (80-100) fL MCH (25-34) pg MCHC (32-36) g/dL RDW Std Deviation (36.4-46.3) fL RDW Coeff of Monica (11.5-14.5) % Plt Count (130-400) K/uL MPV (7.4-10.4) fL Neutrophils % (Manual) % Lymphocytes % (Manual) % Reactive Lymphs % (Man) % Monocytes % (Manual) % Neutrophils # (Manual) (1.4-6.5) K/uL Total Absolute Neuts (1.4-6.5) K/uL Lymphocytes # (Manual) (1.2-3.4) K/uL Reactive Lymphs # K/uL Total Abs Lymphocytes (1.2-3.4) K/uL Monocytes # (Manual) (0.11-0.59) K/uL Sodium (136-145) mmol/L Potassium (3.5-5.1) mmol/L Chloride (98-107) mmol/L Carbon Dioxide (21-32) mmol/L Anion Gap (3-11) BUN (7-18) mg/dl Creatinine (0.6-1.2) mg/dl Est Cr Clr Drug Dosing ml/min Est GFR ( Amer) Est GFR (Non-Af Amer) BUN/Creatinine Ratio (10-20) Glucose (70-99) mg/dl Calcium (8.5-10.1) mg/dl Total Bilirubin 3.3 H (0.2-1) mg/dl Direct Bilirubin 2.7 H (0-0.2) mg/dl AST 152 H (15-37) U/L ALT 187 H (12-78) U/L Alkaline Phosphatase 188 H (45-117) U/L Total Creatine Kinase (26-192) U/L Total Protein 6.4 (6.4-8.2) gm/dl Albumin 2.5 L (3.4-5.0) gm/dl Globulin (2.5-4.0) gm/dl Albumin/Globulin Ratio (0.9-2) Lipase (73-393) U/L Urine Color Urine Appearance (Clear) Urine pH (4.5-7.5) Ur Specific [place] (1.000-1.030) Urine Protein (Negative) Urine Glucose (UA) (Negative) Urine Ketones (Negative) Urine Blood (Negative) Urine Nitrite (Negative) Urine Bilirubin (Negative) Urine Urobilinogen (Negative) Ur Leukocyte Esterase (Negative) Urine WBC (Auto) (0-5) /hpf Urine RBC (Auto) (0-4) /hpf U Hyaline Cast (Auto) (0-5) /lpf U Epithel Cells (Auto) (0-5) /lpf Urine Bacteria (Auto) (Negative) Calcium Oxalate Crystal (None Prsent) Urine Mucus (None Prsent) Urine Yeast POC Ur Test NEG (NEG) CMV IgM Ab CMV IgG Ab/TORCH EBV Capsid Ag IgG Ab EBV Capsid Ag IgM Ab EBV EA Restrict+Diffuse EBV Nuclear Antigen Ab EBV Antibody Interp Hepatitis A IgM Ab Hep Bs Antigen Neg (Neg) Hep B Core IgM Ab Hepatitis C Antibody Neg (Neg) 10/03/19 10/03/19 10/03/19 Range/Units 19:31 19:22 19:22 WBC 8.79 (4.8-10.8) K/uL RBC 4.20 (4.2-5.4) M/uL Hgb 12.5 (12.0-16.0) g/dL Hct 36.3 L (37-47) % MCV 86.4 (80-100) fL MCH 29.8 (25-34) pg MCHC 34.4 (32-36) g/dL RDW Std Deviation 42.5 (36.4-46.3) fL RDW Coeff of Monica 13.5 (11.5-14.5) % Plt Count 141 (130-400) K/uL MPV 10.1 (7.4-10.4) fL Neutrophils % (Manual) 28.9 % Lymphocytes % (Manual) 22.8 % Reactive Lymphs % (Man) 43.0 % Monocytes % (Manual) 5.3 % Neutrophils # (Manual) 2.54 (1.4-6.5) K/uL Total Absolute Neuts 2.54 (1.4-6.5) K/uL Lymphocytes # (Manual) 2.00 (1.2-3.4) K/uL Reactive Lymphs # 3.78 K/uL Total Abs Lymphocytes 5.78 H (1.2-3.4) K/uL Monocytes # (Manual) 0.47 (0.11-0.59) K/uL Sodium 136 (136-145) mmol/L Potassium 3.6 (3.5-5.1) mmol/L Chloride 106 (98-107) mmol/L Carbon Dioxide 24 (21-32) mmol/L Anion Gap 6.0 (3-11) BUN 6 L (7-18) mg/dl Creatinine 0.76 (0.6-1.2) mg/dl Est Cr Clr Drug Dosing 93.4 ml/min Est GFR ( Amer) 130.9 Est GFR (Non-Af Amer) 112.9 BUN/Creatinine Ratio 8.5 L (10-20) Glucose 84 (70-99) mg/dl Calcium 8.4 L (8.5-10.1) mg/dl Total Bilirubin 3.9 H (0.2-1) mg/dl Direct Bilirubin (0-0.2) mg/dl AST 184 H (15-37) U/L ALT 224 H (12-78) U/L Alkaline Phosphatase 248 H (45-117) U/L Total Creatine Kinase 28 (26-192) U/L Total Protein 7.7 (6.4-8.2) gm/dl Albumin 3.0 L (3.4-5.0) gm/dl Globulin 4.7 H (2.5-4.0) gm/dl Albumin/Globulin Ratio 0.6 L (0.9-2) Lipase 133 (73-393) U/L Urine Color Dark Yellow Urine Appearance Cloudy A (Clear) Urine pH 6.0 (4.5-7.5) Ur Specific [place] 1.017 (1.000-1.030) Urine Protein Trace H (Negative) Urine Glucose (UA) Negative (Negative) Urine Ketones Negative (Negative) Urine Blood Trace H (Negative) Urine Nitrite Positive A (Negative) Urine Bilirubin 3+ H (Negative) Urine Urobilinogen Negative (Negative) Ur Leukocyte Esterase 1+ H (Negative) Urine WBC (Auto) 1-5 (0-5) /hpf Urine RBC (Auto) 0-4 (0-4) /hpf U Hyaline Cast (Auto) 0 (0-5) /lpf U Epithel Cells (Auto) >30 H (0-5) /lpf Urine Bacteria (Auto) 2+ H (Negative) Calcium Oxalate Crystal Present A (None Prsent) Urine Mucus Present A (None Prsent) Urine Yeast Not Reportable POC Ur Test (NEG) CMV IgM Ab CMV IgG Ab/TORCH EBV Capsid Ag IgG Ab EBV Capsid Ag IgM Ab EBV EA Restrict+Diffuse EBV Nuclear Antigen Ab EBV Antibody Interp Hepatitis A IgM Ab Hep Bs Antigen (Neg) Hep B Core IgM Ab Hepatitis C Antibody (Neg) Diagnostic Findings CT SCAN OF THE ABDOMEN AND PELVIS WITH IV CONTRAST CLINICAL HISTORY: Fever. Generalized abdominal pain. COMPARISON STUDY: No priors. TECHNIQUE: Following the IV administration of 93 cc of Optiray 320, CT scan of the abdomen and pelvis is performed from the lung bases to the proximal femora. Images are reviewed in the axial, sagittal, and coronal planes. IV contrast was administered without complication. A dose lowering technique was utilized adhering to the principles of ALARA. CT DOSE: 287.35 mGy.cm FINDINGS: Lung bases: The heart is normal in size and without pericardial effusion. There are trace pleural effusions and bibasilar atelectasis. Liver: The contrast-enhanced liver is enlarged, measuring 21 cm in length. The liver is normal in contour and attenuation. There is no intrahepatic biliary ductal dilatation. The hepatic veins and portal veins are patent. Gallbladder: Contracted. Spleen: The spleen is enlarged measuring 16.8 cm in length. Pancreas: Unremarkable. Adrenal glands: Unremarkable. Kidneys: The contrast enhanced kidneys are normal in size and without hydronephrosis. The kidneys enhance symmetrically. Abdominal vasculature: The abdominal aorta is normal in course and caliber. Bowel: The small bowel and colon are normal in course and caliber. The appendix is well-visualized and normal. Peritoneum: There is no intraperitoneal free air or abdominal ascites. There is a small fat-containing umbilical hernia. Lymphadenopathy: None. Pelvic viscera: The bladder is decompressed and grossly unremarkable. Uterus and adnexa are normal as visualized noting bilateral ovarian follicles. There is a small volume of free fluid in the cul-de-sac. Skeletal structures: No lytic or blastic lesions are seen. IMPRESSION: 1. There are no acute infectious or inflammatory findings in the abdomen or pelvis. 2. There is a small volume of nonspecific free fluid in cul-de-sac, likely within physiologic limits. 3. Trace pleural effusions. 4. Hepatosplenomegaly. (1) Mononucleosis Infectious mononucleosis complication: without complication Infectious mononucleosis etiology: unspecified organism Qualified Code(s): B27.90 - Infectious mononucleosis, unspecified without complication
--- NOTE | 2019-10-04 17:42 | Discharge Summary ---
Date of Service October 04, 2019 Admission HPI Per Admitting Provider 19 y/o female presents to the ED with diffuse abdominal pain, fatigue, muscle aches, nausea and intermittent hives. 3 days prior she was seen in an urgent care due to sore throat, submandibular lymphadenopathy with fever. [facility]. Her sore throat and lymphadenopathy improved, but she began having abdominal pain and dark colored urine. No Vomiting. Normal BMs. Throughout this illness, she has been having intermittent hive outbreaks that has been controlled with Benadryl. She is a student at [employer] and her home is in [place], [place]. Her mother is at bedside. The patient has n ot traveled out of this area in past 3 months. She does not use IV drugs. Her only medication is oral contraception which she is prescribed due to dysmenorrhea and menorrhagia. Her LNMP was last week and normal. She denies any previous abdominal surgeries. Admission Exam Per Admitting Provider General- adult female, NAD Head- atraumatic Eyes- PERRL, EOMI, anicteric ENT- oropharynx mildly erythematous, no exudate. Neck- supple, no JVD, Minimal submandibular lymphadenopathy. Lungs- CTA b/l no R/R/W Heart- regular rhythm; no murmur, no gallop, no rub appreciated Abdomen- normal bowel sounds, soft, nontender, + hepatosplenomegaly Extremities- no pretibial edema, no calf tenderness; peripheral pulses intact Neuro- alert, oriented x 3; PERRL, EOMI; tire balancer II-XII grossly intact, non-focal. Skin- warm & dry. A Few flat circular red areas noted on b/l hands and wrists, from recent hive outbreak. Principal Diagnosis Acute Hepatitis, EBV Discharge Exam General: Appears fatigued on exam. HEENT: NC/AT; PERRLA with EOMI; [place] conjunctiva, MMM. No erythema of posterior pharynx Neck: Supple and nontender; no lymphadenopathy noted. Cardiac: RRR Lungs: CTA bilaterally; No rhonchi, wheezing, or rales Abdomen: Bowel normoactive X 4; +Splenomegaly; TTP over LUQ. Extremities: Warm. No edema present Neuro: No focal weakness Skin: No rash Discharge Data Allergies Allergy/AdvReac Type Severity Reaction Status Date / Time No Known Allergies Allergy Verified 10/03/19 22:08 Consultations 10/03/19 22:12 ED Decision to Admit Stat 10/03/19 23:50 Consult Gastroenterology Routine Ordered Studies 10/03/19 19:03 CT abd pelvis IV con only Stat Hospital Course (1) Acute hepatitis: Presented with acute hepatitis, likely related to EBV infection. Acute hepatitis panel, CMV and EBV all pending. LFTs remained elevated on day of discharge but were stable. Provided script for outpatient labs in 2 days. GI consulted, appreciate input. Will need to follow up with PCP to discuss lab results and for re-evaluation in 5-7 days. Avoid ETOH and heavy Tylenol use at home. (2) Mononucleosis: Diagnosed as outpatient. Advised to avoid contact sports for 6 weeks. EBV is pending. (3) Menorrhagia: Continue oral contraception. (4) Hives: Unclear etiology. May be related to viral infection. Did start new oral contraception and developed urticaria in 3-4 days. Is taking old contraceptive agent at this point. Advised to take Benadryl prn and report to the ER if she develops increased urticaria/SOB/chest pain. Discharged to home on 10/04/19. Total Time Total Time Spent Total Time Spent (In Minutes): >30 minutes Total Time Includes: Examination of the Patient, Discharge Planning, Medication Reconciliation, Communication With Other Providers and Other Discharge Plan Discharge Items Patient Disposition: Home - Self-Care Reason For Visit: ACUTE HEPATITIS Discharge Diagnosis: Acute hepatitis, Mononucleosis Condition on Discharge: Fair Goals: You have been hospitalized for an acute medical problem. During your stay at [facility], we have made an effort to correct the problem that brought you to the hospital while keeping you as comfortable as possible. M edications were used to bring your condition under control and your discharge instructions will include directions for any medications you should take after leaving the hospital. Please make sure you see your Primary Care Provider as part of your follow up plan. Activity: As commented below Exercise/Sports: Wait until after follow-up appointment Non-emergency contact: Primary Care Provider Call non-emergency contact if: you have any medication questions, your symptoms worsen, your pain is not controlled, your pain is worsening, your pain is unusual for you, your pain is concerning for you and you have a fever Follow-up/Referrals: Al Eaton MD [Primary Care Provider] - Diet: Regular Ambulatory Orders: Comprehensive Metabolic Panel (Routine) Timeframe: 2 Days Location: Determined by Patient Ordered By: Zara Walton Attending Provider Instructions: 1. Acute hepatitis in setting of mononucleosis * Hepatitis panel, CMV and EBV via blood are all pending. * Liver function tests remain elevated; you will need follow up lab work on Wednesday to re-evaluate LFTs. Script was provided at discharge. * Please continue regular diet as tolerated with increased fluid intake. * You will need to follow up with your primary care provider in 5-7 days to discuss this admission. * Avoid ETOH intake following discharge. Please limit Tylenol to <2 gm per day. * Avoid contact sports for at least 6 weeks. 2. Hives * Please take Benadryl every 6 hours as needed at home. * Please go to the ER if you develop hives leading to chest pain, shortness of breath, neck swelling or respiratory distress. Pending Studies at Discharge: Yes Studies:: Hepatitis panel, EBV and CMV studies. Stand-Alone Forms: [facility], Work/School Release (Inpt) Medications and DC Order Prescriptions: New diphenhydramine HCl [Benadryl] 25 mg capsule 25 mg PO Q6H PRN (Reason: itching) Qty: 1 RF: 0 Continued L norgest/e.estradiol-e.estrad 0.15 mg-30 mcg (84)/10 mcg (7) tablets,dose pack,3 month 1 tab PO DAILY RF: 0 Discharge Orders: Discharge Order (Routine); Ordered 10/04/19 Ordered By: Zara Luna/Other Patient Handouts: Mononucleosis Admission Data Admit Date/Time: 10/03/19 22:49 Attending Provider: Avelino Caldwell Admit Provider: Cain Carpenter Primary Care Provider: Al Eaton Other Providers: Cain Carpenter ; Cecelia Dyson Other Interventions: Discharge Summary Assessment (RN) Last Done: 10/04/19 15:15 DC Date/Time DO NOT enter until pt leaves facility: 10/04/19 16:00
[2019-10-06 11:25] LABS: CMV IgG Antibody <0.60 U/mL; EBV Nuclear Ag Antibody <18.00 U/mL; Hepatitis A Antibody IgM NON-REACTIVE (NON-REACTIVE); Hepatitis B Core Antibody IgM NON-REACTIVE (NON-REACTIVE)
== END 2019-10-04 16:00 | disposition home or self-care (01) | DRG 443 ==
LOC: ED 17:10 → SUATTDRO 22:49 → 3N 22:49